=== PATIENT | male | born 1980 | race Two or more races ===

== ENCOUNTER 2020-08-28 21:32 | Emergency (ER) | payer SELFPAY ==
[~2020-08-28] VITALS: Ht 170.2 cm; Wt 77.1 kg
--- NOTE | 2020-08-28 21:45 | NUR ---
Pte came to ER ambulatory c/o abdominal pain since wednesday , patient rates the pain 10/ . EDP evaluated the patient new orders received and carried out . Will continue to monitor the patient .
--- NOTE | 2020-08-28 21:51 | Emergency Room Report ---
History of Present Illness General Chief Complaint: Abdominal Pain Source: Patient Present Illness HPI Patient presents emergency department today complaining of acute onset of left lower quadrant abdominal pain. Patient states that he has had left lower quadrant abdominal pain for the last 3 days. He denies any nausea or vomiting. States that it seems to get worse when he is having a bowel movement or trying to have a bowel movement. He is tender left lower quadrant. He denies any dysuria urinary frequency. Denies any flank pain. Denies any fever. Denies any cough runny nose sore throat. Denies testicle pain or difficulty with urination. Denies any dysuria urinary frequency. Symptoms noted to be mild to moderate. The pain is nonradiating. No other modifying factors. No other associated signs and symptoms. No other complaints were noted. Allergies: Coded Allergies: No Known Allergies (Unverified , 08/28/20) COVID-19 Screening Contact w/high risk pt: No Recent Travel to affected area: No Experienced COVID-19 symptoms?: No COVID-19 Testing performed [employer]: No COVID-19 Screening: Negative COVID-19 Patient History Past Medical History: none Past Surgical History: none Pertinent Family History: none Social History: Denies: smoking, alcohol use, drug use Reviewed Nursing Documentation: PMH: Agreed; PSxH: Agreed Nursing Documentation-PMH Past Medical History: No Stated History Review of Systems All Other Systems: negative except mentioned in HPI Physical Exam Vital Signs Date Time Temp Pulse Resp B/P (MAP) Pulse Ox O2 Delivery O2 Flow Rate FiO2 08/28/20 21:35 99.3 84 20 135/87 (103) 98 Room Air Sp02 EP Interpretation: reviewed, normal General Appearance: normal inspection, well appearing, no apparent distress, alert Head: atraumatic Eyes: bilateral eye normal inspection ENT: normal ENT inspection, hearing grossly normal, normal voice Neck: normal inspection, full range of motion, supple, no bony tend Respiratory: normal inspection, lungs clear, normal breath sounds, no respiratory distress, no retraction, no wheezing Cardiovascular #1: regular rate, rhythm, no edema Gastrointestinal: normal inspection, normal bowel sounds, soft, no guarding, no hernia, tenderness - Left lower quadrant Genitourinary: no CVA tenderness Musculoskeletal: normal inspection, back normal, normal range of motion Neurologic: alert, responsive, speech normal, normal inspection Psychiatric: normal inspection, judgement/insight normal, mood/affect normal Skin: no rash Medical Decision Making Diagnostic Impression: Primary Impression: Abdominal pain ER Course Patient presents emergency department today complaining of acute onset of abdominal pain. Differential diagnosis include colitis, diverticulitis, gastritis, UTI just name a few. Given the severity of the patient's presentation I felt this is a highly complex patient. This patient required extensive workup. I will sign this case out to Dr. Orellana for final disposition. Last Vital Signs Date Time Temp Pulse Resp B/P (MAP) Pulse Ox O2 Delivery O2 Flow Rate FiO2 08/28/20 21:35 99.3 84 20 135/87 (103) 98 Room Air Rogelio Felix MD Aug 28, 2020 21:51
[2020-08-28 22:02] LABS: APPEARANCE,URINE CLEAR; BASOPHILS % (AUTO) 0.5 % (0.0-2.0); BILIRUBIN, URINE NEGATIVE (NEGATIVE); GLUCOSE, URINE (UA) NEGATIVE (NEGATIVE); HEMATOCRIT 43.8 % (42.0-52.0); HEMOGLOBIN 14.6 G/DL (14.2-18.0); KETONES,URINE NEGATIVE (NEGATIVE); LEUKOCYTE ESTERASE ,URINE NEGATIVE (NEGATIVE); LYMPHOCYTES % (AUTO) 13.6 % (20.0-45.0); MEAN CORPUSCULAR VOLUME 93 FL (80-99); MONOCYTES % (AUTO) 5.5 % (1.0-10.0); NEUTROPHILS % (AUTO) 79.5 % (45.0-75.0); NITRITE,URINE NEGATIVE (NEGATIVE); PH,URINE 6 (4.5-8.0); PLATELET COUNT 303 K/UL (150-450); PROTEIN,URINE NEGATIVE (NEGATIVE); RED BLOOD COUNT 4.71 M/UL (4.70-6.10); RED CELL DISTRIBUTION WIDTH 13.4 % (11.6-14.8); UROBILINOGEN,URINE NORMAL MG/DL (0.0-1.0); WHITE BLOOD COUNT 12.3 K/UL (4.8-10.8)
[2020-08-28 22:04] LABS: COLOR,URINE YELLOW
[2020-08-28 22:06] VITALS: BP 137/82
[2020-08-28 22:13] LABS: ANION GAP 10 mmol/L (5-15); BLOOD UREA NITROGEN 15 mg/dL (7-18); CALCIUM 9.3 MG/DL (8.5-10.1); CARBON DIOXIDE 24 MMOL/L (21-32); CHLORIDE 102 MMOL/L (98-107); CREATININE 1.1 MG/DL (0.55-1.30); POTASSIUM 3.8 MMOL/L (3.5-5.1); SODIUM 136 MMOL/L (136-145)
[2020-08-28 22:18] LABS: ALANINE AMINOTRANSFERASE 47 U/L (12-78); ALBUMIN/GLOBULIN RATIO 1.1 (1.0-2.7); ALKALINE PHOSPHATASE 57 U/L (46-116); ASPARTATE AMINO TRANSFERASE 27 U/L (15-37); BILIRUBIN,TOTAL 0.3 MG/DL (0.2-1.0)
--- NOTE | 2020-08-28 22:42 | Diagnostic Imaging Report ---
EXAM: CT Abdomen and Pelvis Without Intravenous Contrast CLINICAL HISTORY: ABD PAIN TECHNIQUE: Axial computed tomography images of the abdomen and pelvis without intravenous contrast. CTDI is 5.9 mGy and DLP is 338.3 mGy-cm. One or more of the following dose reduction techniques were used: automated exposure control, adjustment of the mA and/or kV according to patient size, use of iterative reconstruction technique. COMPARISON: None. FINDINGS: Lung bases: Mild posterior dependent atelectasis. Mediastinum: Decompressed stomach with no hiatal hernia. ABDOMEN: Liver: Unremarkable. Gallbladder and bile ducts: Unremarkable. No calcified stones. No ductal dilation. Pancreas: Unremarkable. No ductal dilation. Spleen: Unremarkable. No splenomegaly. Adrenals: Mass identified within the medial limb of the left adrenal gland measuring 2.3 x 1.7 cm, incompletely characterized by current exam. Kidneys and ureters: Unremarkable. No obstructing stones. No hydronephrosis. Stomach and bowel: Diverticulosis of the descending colon and sigmoid. Inflammatory changes at the level of the descending colon junction with sigmoid in the region of prominent diverticuli and consistent with diverticulitis. No free air. No abscess. No obstruction. PELVIS: Appendix: Normal appendix. Bladder: Decompressed urinary bladder. No stones. Reproductive: Normal size of prostate gland pain ABDOMEN and PELVIS: Intraperitoneal space: Unremarkable. No free air. No significant fluid collection. Bones/joints: Minor degenerative disease of the spine. No acute fracture. No dislocation. Soft tissues: Unremarkable. Vasculature: Normal aorta. No abdominal aortic aneurysm. Lymph nodes: Unremarkable. No enlarged lymph nodes. IMPRESSION: 1. Diverticulitis at the descending colon junction with sigmoid. No evidence of abscess. 2. No acute appendicitis or bowel obstruction. 3. Unremarkable abdominal viscera. 4. Left adrenal mass, incompletely characterized by current exam. Recommend follow-up with MRI or CT of the abdomen, adrenal mass protocol for further characterization.
[2020-08-28] MEDS ORDERED: CIPROFLOXACIN500 M2 ORAL (22:50)
[2020-08-28] MEDS ORDERED: METRONIDAZOLE500 MG ORAL (22:50)
[2020-08-28] MEDS ORDERED: Ciprofloxacin 500mg tab ORAL ONE (23:00)
[2020-08-28] MEDS ORDERED: metroNIDAZOLE 500mg tab ORAL ONE (23:00)
[2020-08-28 23:01] VITALS: BP 126/89
--- NOTE | 2020-08-28 23:04 | NUR ---
Pte discharge home as EDP ordered all instructions and presciptions were given to the patient , he verbalized unsderstanding . Pte left the ER stable .
== END 2020-08-28 23:07 | disposition home or self-care (01) ==
LOC: EMR 22:00
DX: R10.32 Left lower quadrant pain (principal); E27.9 Disorder of adrenal gland, unspecified; K57.92 Diverticulitis of intestine, part unspecified, without perforation or abscess without bleeding
CPT/HCPCS: 36415; 74176; 80053; 80307; 81003; 83690; 83735; 85025; 99284